=== PATIENT | male | born 1990 | race Caucasian/White ===

== ENCOUNTER 2017-05-30 16:38 | Emergency (ER) | payer BC, MEDICAID ==
[2017-05-30] MEDS ORDERED: ONDANSETRON HCL INJ/PF 4 MG/2 ML SDV IV ONE (16:57)
[2017-05-30] MEDS ORDERED: NORMAL SALINE 1000 ML 1,000 ML IV PRN (16:57)
--- NOTE | 2017-05-30 16:59 | ER Document Report ---
ED Medical Screen (RME) - General Chief Complaint: Urinary Problem Stated Complaint: BLOOD IN URINE,ABNORMAL LABS Time Seen by Provider: 05/30/17 16:54 Mode of Arrival: Ambulatory Information source: Patient TRAVEL OUTSIDE OF THE [place] 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, yesterday while at work he became lightheaded and had nausea and vomiting, he went home from work early, stayed indoors and drink lots of water as well as Gatorade, today he returned to work and was feeling okay in the morning but once his son came out again he started having similar symptoms resulting in a syncopal episode, states he drank at least 7-8 bottles of water today as well as one bottle of Gatorade, he denies any pain or injury, no history of similar symptoms previously, states he feels weak at time of evaluation in triage area - Related Data Allergies/Adverse Reactions: methylprednisolone [Methylprednisolone] Allergy (Mild, Verified 05/30/17 16:42) itching Sulfa (Sulfonamide Antibiotics) Allergy (Mild, Verified 05/30/17 16:42) itching Past Medical History Neurological Medical History: Reports: Hx Migraine Renal/ Medical History: Denies: Hx Peritoneal Dialysis Past Surgical History: Reports: Hx Appendectomy. Denies: Hx Pancreatic Surgery - Immunizations Hx Diphtheria, Pertussis, Tetanus Vaccination: Yes Physical Exam - Vital signs Vitals: Temp Pulse Resp BP Pulse Ox 98.8 F 99 16 143/87 H 97 05/30/17 16:39 05/30/17 16:39 05/30/17 16:39 05/30/17 16:39 05/30/17 16:39 Course - Vital Signs Vital signs: Temp Pulse Resp BP Pulse Ox 98.8 F 99 16 143/87 H 97 05/30/17 16:39 05/30/17 16:39 05/30/17 16:39 05/30/17 16:39 05/30/17 16:39
[2017-05-30 18:40] LABS: ABSOLUTE BASOPHILS # (AUTO) 0.1 10^3/uL (0.0-0.2); ABSOLUTE EOSINOPHILS # (AUTO) 0.1 10^3/uL (0.0-0.6); ABSOLUTE LYMPHOCYTES (AUTO) 4.8 10^3/uL (0.5-4.7); ABSOLUTE MONOCYTES (AUTO) 1.1 10^3/uL (0.1-1.4); ABSOLUTE NEUT (AUTO) 12.1 10^3/uL (1.7-8.2); BASOPHILS % (AUTO) 0.8 % (0-2); EOSINOPHILS % (AUTO) 0.3 % (0-6); HEMATOCRIT 50.5 % (37.9-51.0); HEMOGLOBIN 16.9 g/dL (13.5-17.0); HGB HCT DIFFERENCE 0.2; LYMPHOCYTES % (AUTO) 26.3 % (13-45); MEAN CORPUSCULAR HEMOGLOBIN 26.6 pg (27.0-33.4); MEAN CORPUSCULAR HGB CONC 33.5 g/dL (32.0-36.0); MEAN CORPUSCULAR VOLUME 80 fl (80-97); MONOCYTES % (AUTO) 6.2 % (3-13); RED BLOOD COUNT 6.36 10^6/uL (4.35-5.55); RED CELL DISTRIBUTION WIDTH 13.7 % (11.5-14.0); SEGMENTED NEUTROPHILS % (AUTO) 66.4 % (42-78); WHITE BLOOD COUNT 18.3 10^3/uL (4.0-10.5)
[2017-05-30 18:46] LABS: APPEARANCE,URINE SLIGHTLY-CLOUDY; BILIRUBIN,URINE NEGATIVE (NEGATIVE); GLUCOSE, URINE NEGATIVE (NEGATIVE); KETONES,URINE TRACE mg/dL (NEGATIVE); LEUKOCYTE ESTERASE,URINE NEGATIVE (NEGATIVE); NITRITE,URINE NEGATIVE (NEGATIVE); PROTEIN,URINE NEGATIVE (NEGATIVE); URINE SPECIFIC GRAVITY 1.024; UROBILINOGEN,URINE NEGATIVE mg/dL (<2.0)
[2017-05-30 19:04] LABS: ALANINE AMINOTRANSFERASE 100 U/L (21-72); ALBUMIN 5.7 g/dL (3.5-5.0); ALKALINE PHOSPHATASE 149 U/L (38-126); ANION GAP 19 (5-19); ASPARTATE AMINO TRANSFERASE 33 U/L (17-59); BILIRUBIN,DIRECT 0.6 mg/dL (0.0-0.4); BILIRUBIN,TOTAL 1.4 mg/dL (0.2-1.3); BLOOD UREA NITROGEN 28 mg/dL (7-20); CALCIUM 10.8 mg/dL (8.4-10.2); CARBON DIOXIDE 23 mmol/L (22-30); CHLORIDE 97 mmol/L (98-107); CREATINE KINASE 153 U/L (55-170); CREATININE RESULT 1.11 mg/dL (0.52-1.25); GLUCOSE 82 mg/dL (75-110); POTASSIUM 4.2 mmol/L (3.6-5.0); SODIUM 138.5 mmol/L (137-145); TOTAL PROTEIN 9.1 g/dL (6.3-8.2)
--- NOTE | 2017-05-30 21:23 | ER Document Report ---
ED Syncope and Near Syncope - General Mode of Arrival: Ambulatory Information source: Patient TRAVEL OUTSIDE OF THE [place] IN LAST 30 DAYS: No - HPI Patient complains to provider of: Fainting <DIANE CLEANING - Last Filed: 05/31/17 03:25> <DIPIKA WEISS - Last Filed: 05/31/17 03:25> - General Chief Complaint: Urinary Problem Stated Complaint: BLOOD IN URINE,ABNORMAL LABS Time Seen by Provider: 05/30/17 16:54 Notes: Patient is a 27-year-old male who presents to the emergency department today with complaints of a syncopal episode that occurred today while at work. Patient states he also had a near syncopal episode yesterday while at work. Patient states that he has had intermittent right upper quadrant abdominal pain for a few weeks. Patient states he was shoveling dirt today when his syncopal episode occurred. Patient states he thinks he got overheated. Patient was seen in an urgent care and was told he had "blood and sugar in his urine" and was told to come to the emergency department. Patient states he has vomited once. (DIANE CLEANING) - Related Data Allergies/Adverse Reactions: methylprednisolone [Methylprednisolone] Allergy (Mild, Verified 05/30/17 16:42) itching Sulfa (Sulfonamide Antibiotics) Allergy (Mild, Verified 05/30/17 16:42) itching Past Medical History - General Information source: Patient - Social History Smoking Status: Never Smoker Cigarette use (# per day): No Chew tobacco use (# tins/day): No Frequency of alcohol use: None Drug Abuse: None Lives with: Family Family History: None - Medical History Medical History: Negative Neurological Medical History: Reports: Hx Migraine GI Medical History: Reports: Hx Gastroesophageal Reflux Disease Past Surgical History: Reports: Hx Appendectomy - Immunizations Hx Diphtheria, Pertussis, Tetanus Vaccination: Yes <DIANE CLEANING - Last Filed: 05/31/17 03:25> Review of Systems - Review of Systems Constitutional: No symptoms reported EENT: No symptoms reported Cardiovascular: See HPI, Syncope Respiratory: No symptoms reported Gastrointestinal: See HPI, Abdominal pain, Vomiting Genitourinary: No symptoms reported Male Genitourinary: No symptoms reported Musculoskeletal: No symptoms reported Skin: No symptoms reported Hematologic/Lymphatic: No symptoms reported Neurological/Psychological: No symptoms reported -: Yes All other systems reviewed and negative <DIANE CLEANING - Last Filed: 05/31/17 03:25> Physical Exam <DIANE CLEANING - Last Filed: 05/31/17 03:25> <DIPIKA WEISS - Last Filed: 05/31/17 03:25> - Vital signs Vitals: Temp Pulse Resp BP Pulse Ox 98.8 F 99 16 143/87 H 97 05/30/17 16:39 05/30/17 16:39 05/30/17 16:39 05/30/17 16:39 05/30/17 16:39 - Notes Notes: PHYSICAL EXAM GENERAL: Alert, interacts well. No acute distress. HEAD: Normocephalic, atraumatic. EYES: Pupils equal, round, and reactive to light. Extraocular movements intact. ENT: Oral mucosa moist, tongue midline. NECK: Full range of motion. Supple. Trachea midline. LUNGS: Clear to auscultation bilaterally, no wheezes, rales, or rhonchi. No respiratory distress. HEART: Regular rate and rhythm. No murmurs, gallops, or rubs. ABDOMEN: Soft, right upper quadrant tenderness with palpation, positive Flores' s sign. Non-distended. Bowel sounds present in all 4 quadrants. BACK: Right paraspinal tenderness with percussion, no CVA tenderness with percussion on right or left. EXTREMITIES: Moves all 4 extremities spontaneously. No edema, radial and dorsalis pedis pulses 2/4 bilaterally. No cyanosis. NEUROLOGICAL: Alert and oriented x3. Normal speech. PSYCH: Normal affect, normal mood. SKIN: Warm, dry, normal turgor. No rashes or lesions noted. Sunburn without blistering. (DIANE CLEANING) Course - Laboratory Result Diagrams: 05/30/17 18:08 05/30/17 18:08 <DIANE CLEANING - Last Filed: 05/31/17 03:25> - Laboratory Result Diagrams: 05/30/17 18:08 05/30/17 18:08 <DIPIKA WEISS - Last Filed: 05/31/17 03:25> - Re-evaluation Re-evalutation: 05/31/17 00:15 CBC shows leukocytosis at 18.3, CMP shows slightly elevated bilirubin total bilirubin is 1.4, direct bilirubin 0.6, ALT and alkaline phosphatase both somewhat elevated as well but AST is normal. CK is normal no evidence of rhabdomyolysis at this time, small blood in the urine but 0 RBCs on microscopic. Suspicion for possible acute cholecystitis not confirmed with ultrasound which shows normal gallbladder and fatty liver. This is based off of a pk in the chart from the radiologist rather than full read. Patient is able to tolerate oral liquids and crackers. Patient appears to have biliary colic, discussed the possibility of removal tonight given her protracted symptoms have been versus outpatient removal. Patient prefers outpatient removal, discharged to home with antinausea medications will return for fevers, further syncope or any new or concerning symptoms. 05/31/17 00:16 Patient likely also had history of heat stroke earlier today given his syncope. (DIPIKA WEISS) - Vital Signs Vital signs: Temp Pulse Resp BP Pulse Ox 98.1 F 84 18 137/75 H 99 05/31/17 00:56 05/31/17 00:56 05/31/17 00:56 05/31/17 00:56 05/31/17 00:56 - Laboratory Laboratory results interpreted by me: 05/30/17 05/30/17 05/30/17 17:36 18:08 18:08 WBC 18.3 H RBC 6.36 H MCH 26.6 L Absolute Neutrophils 12.1 H Absolute Lymphocytes 4.8 H Chloride 97 L BUN 28 H Calcium 10.8 H Total Bilirubin 1.4 H Direct Bilirubin 0.6 H ALT 100 H Alkaline Phosphatase 149 H Total Protein 9.1 H Albumin 5.7 H Urine Ketones TRACE H Urine Blood SMALL H Discharge <DIANE CLEANING - Last Filed: 05/31/17 03:25> <DIPIKA WEISS - Last Filed: 05/31/17 03:25> - Discharge Clinical Impression: Biliary colic, Heat syncope, initial encounter Hypertension Qualifiers: Hypertension type: essential hypertension Qualified Code(s): I10 - Essential ( primary) hypertension Condition: Stable Disposition: HOME, SELF-CARE Instructions: Gallbladder Disease ([facility]) Prescriptions: Ondansetron [Zofran Odt 4 mg Tablet] 1 - 2 tab PO Q4H PRN #15 tab.rapdis PRN Reason: For Nausea/Vomiting Promethazine HCl [Phenergan 25 mg Tablet] 1 - 2 tab PO Q6H PRN #15 tablet PRN Reason: Forms: Return to Work Referrals: CHAI ACOSTA MD [ACTIVE STAFF] - Follow up in 1 week KARUNA RAMAN MD [ACTIVE STAFF] - Follow up in 3-5 days Scribe Attestation: 05/31/17 03:25 I personally performed the services described in the documentation, reviewed and edited the documentation which was dictated to the scribe in my presence, and it accurately records my words and actions. (DIPIKA WEISS) Scribe Documentation - Scribe Written by Aidee:: Aidee Clarke, 05/31/2017 0010 acting as scribe for :: Malena <DIANE CLEANING - Last Filed: 05/31/17 03:25>
[2017-05-30] MEDS ORDERED: NORMAL SALINE 1000 ML 1,000 ML IV ONE (21:25)
[2017-05-31] MEDS ORDERED: ONDANSETRON HCL INJ/PF 4 MG/2 ML SDV IV ONE (00:10)
[2017-05-31] MEDS ORDERED: ONDANSETRON ODT 4 MG TAB (6 TAB/DSPK) PO PRN (00:18)
[2017-05-31 00:59] VITALS: BP 137/75
--- NOTE | 2017-06-01 16:22 | RADIOLOGY REPORT (SQ) ---
EXAM DESCRIPTION: U/S ABDOMEN LIMITED W/O DOP COMPLETED DATE/TIME: 05/30/2017 8:44 pm REASON FOR STUDY: pain COMPARISON: None. TECHNIQUE: Dynamic and static grayscale images acquired of the right upper quadrant and recorded on PACS. Additional selected color Doppler and spectral images recorded. LIMITATIONS: Study limited due to acoustical interference from fat or from air in the bowel. FINDINGS: PANCREAS: Parts or all of the pancreas poorly seen secondary to acoustical interference fr om fat or from air in the bowel. LIVER: Echotexture is coarse with increased echogenicity consistent with fatty infiltration. No mass es. LIVER VASCULATURE: Normal directional flow of the main portal vein and hepatic veins. GALLBLADDER: No stones. Normal wall thickness. No pericholecystic fluid. ULTRASOUND-DETECTED ANDERSON'S SIGN: Negative. INTRAHEPATIC DUCTS AND COMMON DUCT: CBD and intrahepatic ducts normal caliber. No filling defects. INFERIOR VENA CAVA: Normal flow. AORTA: No aneurysm. RIGHT KIDNEY: Normal size. Normal echogenicity. No solid or suspicious masses. No hydronephrosis. No calcifications. PERITONEAL CAVITY AND RIGHT PLEURAL SPACE: No ascites or effusions. OTHER: No other significant finding. IMPRESSION: FATTY LIVER. PANCREAS PARTIALLY OR COMPLETELY OBSCURED. Normal appearance of the gallbl adder. TECHNICAL DOCUMENTATION: JOB ID: [id number] [employer]- All Rights Reserved
== END 2017-05-31 00:56 | disposition home or self-care (01) ==
LOC: ER 16:38
DX: K80.50 Calculus of bile duct without cholangitis or cholecystitis without obstruction (principal); R55 Syncope and collapse; I10 Essential (primary) hypertension
CPT/HCPCS: 96376; 99284; 96361; 96374; 36415; 82553; 82550; 85025; 80053; 81001; 76705; J2405 ×2; J7030

== ENCOUNTER 2017-06-02 20:18 | Emergency (ER) | payer BC ==
[2017-06-02 20:55] LABS: APPEARANCE,URINE CLEAR; BILIRUBIN,URINE NEGATIVE (NEGATIVE); GLUCOSE, URINE NEGATIVE (NEGATIVE); KETONES,URINE NEGATIVE (NEGATIVE); LEUKOCYTE ESTERASE,URINE NEGATIVE (NEGATIVE); NITRITE,URINE NEGATIVE (NEGATIVE); PROTEIN,URINE NEGATIVE (NEGATIVE); URINE SPECIFIC GRAVITY 1.019; UROBILINOGEN,URINE NEGATIVE mg/dL (<2.0)
[2017-06-02 21:03] LABS: ABSOLUTE BASOPHILS # (AUTO) 0.2 10^3/uL (0.0-0.2); ABSOLUTE EOSINOPHILS # (AUTO) 0.2 10^3/uL (0.0-0.6); ABSOLUTE LYMPHOCYTES (AUTO) 5.7 10^3/uL (0.5-4.7); ABSOLUTE MONOCYTES (AUTO) 0.9 10^3/uL (0.1-1.4); ABSOLUTE NEUT (AUTO) 8.8 10^3/uL (1.7-8.2); BASOPHILS % (AUTO) 1.2 % (0-2); EOSINOPHILS % (AUTO) 1.2 % (0-6); HEMATOCRIT 43.4 % (37.9-51.0); HGB HCT DIFFERENCE 1.6; MEAN CORPUSCULAR HEMOGLOBIN 27.4 pg (27.0-33.4); MEAN CORPUSCULAR HGB CONC 34.5 g/dL (32.0-36.0); MEAN CORPUSCULAR VOLUME 80 fl (80-97); MONOCYTES % (AUTO) 5.8 % (3-13); RED BLOOD COUNT 5.46 10^6/uL (4.35-5.55); RED CELL DISTRIBUTION WIDTH 13.8 % (11.5-14.0); SEGMENTED NEUTROPHILS % (AUTO) 55.8 % (42-78); WHITE BLOOD COUNT 15.7 10^3/uL (4.0-10.5)
[2017-06-02] MEDS ORDERED: NORMAL SALINE 1000 ML 1,000 ML IV ONE (21:08)
[2017-06-02] MEDS ORDERED: ONDANSETRON HCL INJ/PF 4 MG/2 ML SDV IV ONE (21:08)
[2017-06-02] MEDS ORDERED: KETOROLAC TROMETHAMINE INJ/PF 30 MG/1 ML SDV IV ONE (21:09)
[2017-06-02 21:37] LABS: ALANINE AMINOTRANSFERASE 91 U/L (21-72); ALBUMIN 4.6 g/dL (3.5-5.0); ALKALINE PHOSPHATASE 133 U/L (38-126); ANION GAP 11 (5-19); ASPARTATE AMINO TRANSFERASE 68 U/L (17-59); BILIRUBIN,DIRECT 0.5 mg/dL (0.0-0.4); BILIRUBIN,TOTAL 0.6 mg/dL (0.2-1.3); BLOOD UREA NITROGEN 12 mg/dL (7-20); CALCIUM 9.7 mg/dL (8.4-10.2); CARBON DIOXIDE 25 mmol/L (22-30); CHLORIDE 107 mmol/L (98-107); CREATININE RESULT 0.79 mg/dL (0.52-1.25); GLUCOSE 95 mg/dL (75-110); LIPASE 73.2 U/L (23-300); POTASSIUM 3.6 mmol/L (3.6-5.0); SODIUM 143.2 mmol/L (137-145); TOTAL PROTEIN 7.6 g/dL (6.3-8.2)
[2017-06-02] MEDS ORDERED: MORPHINE SULFATE 10 MG/ML INJ IV PRN (22:05)
--- NOTE | 2017-06-02 22:12 | ER Document Report ---
ED General - General Chief Complaint: Abdominal Pain Stated Complaint: ABDOMINAL PAIN Time Seen by Provider: 06/02/17 21:05 Notes: Patient is a 27-year-old male without past medical history who presents with 3 weeks of progressively worsening right upper quadrant abdominal pain. Does describe it as a constant, stabbing, severe pain. It is worsened by eating. Nothing improves the pain. He was seen in the emergency room 3 days ago for the same complaint and at that time diagnosed with biliary colic. He is scheduled to follow-up in the outpatient surgical clinic on Sunday but states the pain became so severe today he returned to the emergency department. He has had associated vomiting and diarrhea. He denies prior history of similar symptoms previously the past 3 weeks. Denies any chest pain or shortness of breath. TRAVEL OUTSIDE OF THE [place] IN LAST 30 DAYS: No - Related Data Allergies/Adverse Reactions: methylprednisolone [Methylprednisolone] Allergy (Mild, Verified 06/02/17 20:34) itching Sulfa (Sulfonamide Antibiotics) Allergy (Mild, Verified 06/02/17 20:34) itching Past Medical History - General Information source: Patient - Social History Smoking Status: Never Smoker Frequency of alcohol use: None Drug Abuse: None Lives with: Family Family History: Reviewed & Not Pertinent Neurological Medical History: Reports: Hx Migraine Renal/ Medical History: Denies: Hx Peritoneal Dialysis GI Medical History: Reports: Hx Gastroesophageal Reflux Disease Past Surgical History: Reports: Hx Appendectomy. Denies: Hx Pancreatic Surgery - Immunizations Hx Diphtheria, Pertussis, Tetanus Vaccination: Yes Review of Systems - Review of Systems Notes: Constitutional: Negative for fever. HENT: Negative for sore throat. Eyes: Negative for visual changes. Cardiovascular: Negative for chest pain. Respiratory: Negative for shortness of breath. Gastrointestinal: Positive for abdominal pain, vomiting and diarrhea Genitourinary: Negative for dysuria. Musculoskeletal: Negative for back pain. Skin: Negative for rash. Neurological: Negative for headaches, weakness or numbness. 10 point ROS negative except as marked above and in HPI. Physical Exam - Vital signs Vitals: Temp Pulse Resp BP Pulse Ox 98.9 F 106 H 16 139/78 H 97 06/02/17 20:34 06/02/17 20:34 06/02/17 20:34 06/02/17 20:34 06/02/17 20:34 Interpretation: Tachycardic Notes: PHYSICAL EXAMINATION: GENERAL: Appears moderately uncomfortable but in no acute distress HEAD: Atraumatic, normocephalic. EYES: Pupils equal round and reactive to light, extraocular movements intact, sclera anicteric, conjunctiva are normal. ENT: nares patent, oropharynx clear without exudates. Moist mucous membranes. NECK: Normal range of motion, supple without lymphadenopathy LUNGS: Breath sounds clear to auscultation bilaterally and equal. No wheezes rales or rhonchi. HEART: Regular rate and rhythm without murmurs ABDOMEN: Soft, right upper quadrant abdominal tenderness without a Flores sign otherwise no focal tenderness, normoactive bowel sounds. No guarding, no rebound. No masses appreciated. EXTREMITIES: Normal range of motion, no pitting or edema. No cyanosis. NEUROLOGICAL: No focal neurological deficits. Moves all extremities spontaneously and on command. PSYCH: Normal mood, normal affect. SKIN: Warm, Dry, normal turgor, no rashes or lesions noted. Course - Re-evaluation Re-evalutation: 06/02/17 22:11 Patient presents with 3 weeks of progressively worsening right upper quadrant abdominal pain now a constant pain. He has repeated episodes of associated vomiting and diarrhea. Pain is worsened by eating. Right upper quadrant ultrasound obtained 3 days ago was normal without any evidence of acute cholecystitis or gallstones. It is possible the patient has a nonfunctioning gallbladder which could be identified on a HIDA scan and is not visualized on ultrasound which could explain his ongoing symptoms although his presentation remains inconsistent with an acute cholecystitis. Alternative diagnostic considerations include regional colitis of the ascending colon, possible liver mass, less likely a regional ileus. Will obtain a CT abdomen pelvis to further clarify these alternative etiologies and if this is unremarkable will discuss with a surgeon ironer sock for consideration of inpatient admission for HIDA scan and surgical management versus outpatient management. 06/02/17 23:34 CT scan unremarkable. Patient's symptoms are improved after receiving pain medication here in the emergency department. I discussed this case with the surgeon ironer sock who did not feel based on history, labs, and imaging studies that patient has a surgical process. Reassessment of the abdomen does not show any ongoing tenderness other than mild right upper quadrant tenderness. Patient's clinical history is not consistent with an acute PE or lung base pathology based on his report of worsening pain with eating, reproducible exam on palpation of the right lower abdomen, no pleuritic pain, tachycardia at time of assessment although initially was mildly tachycardic at time of arrival, and no history of thromboembolic disease. Patient is scheduled to follow-up with surgery as an outpatient this upcoming Sunday which I believe is appropriate. At this time will discharge with return precautions and follow-up recommendations. Verbal discharge instructions given a the bedside and opportunity for questions given. Medication warnings reviewed. Patient is in agreement with this plan and has verbalized understanding of return precautions and the need for primary care follow-up in the next 24-72 hours. - Vital Signs Vital signs: Temp Pulse Resp BP Pulse Ox 98.2 F 106 H 18 123/76 96 06/03/17 00:00 06/02/17 20:34 06/03/17 00:01 06/03/17 00:01 06/03/17 00:01 - Laboratory Result Diagrams: 06/02/17 20:45 06/02/17 20:45 Laboratory results interpreted by me: 06/02/17 06/02/17 20:45 20:45 WBC 15.7 H Absolute Neutrophils 8.8 H Absolute Lymphocytes 5.7 H Direct Bilirubin 0.5 H AST 68 H ALT 91 H Alkaline Phosphatase 133 H - Diagnostic Test Radiology reviewed: Reports reviewed Discharge - Discharge Clinical Impression: Biliary colic, Right upper quadrant pain Condition: Good Disposition: HOME, SELF-CARE Additional Instructions: Please follow-up with surgery as scheduled. Your evaluation did not identify a clear cause of your symptoms but was generally reassuring. I suspect that you have a poorly functioning gallbladder as the etiology of your complaint today. For your pain: Take ibuprofen 600 mg and acetaminophen 1000 mg every 6 hours together as needed for pain. If this does not control your pain you may take 15 mg of oral morphine every 4 hours as needed. Please be very careful about using the oral morphine and only use this for severe pain. Return to the ED if your abdominal pain worsens or fails to improve, you develop bloody vomiting, bloody diarrhea, you are unable to tolerate fluids due to vomiting, fever greater than 101, or other symptoms that concern you. Prescriptions: Morphine Sulfate [Morphine Ir 15 mg Tablet] 15 mg PO Q4HP PRN #12 tablet PRN Reason:
--- NOTE | 2017-06-02 23:15 | RADIOLOGY REPORT (SQ) ---
EXAM DESCRIPTION: CT ABD/PELVIS WITH IV ONLY COMPLETED DATE/TIME: 06/02/2017 10:44 pm REASON FOR STUDY: eval persistent ruq pain, vomiting, diarrhea COMPARISON: Abdominal ultrasound 05/30/2017 TECHNIQUE: CT scan of the abdomen and pelvis performed using helical scanning technique with dynamic intravenous contrast injection. No oral contrast. Images reviewed with lung, soft tissue, and bone windows. Reconstructed coronal and sagittal MPR images reviewed. Delayed images for evaluation of the urinary system also acquired. All images stored on PACS. All CT scanners at this facility use dose modulation, iterative reconstruction, and/or weight based d osing when appropriate to reduce radiation dose to as low as reasonably achievable (ALARA). [facility]: Dose Right [facility]: CareDose [facility]: Dose Right [facility]: Teradose 4D [facility]: Wizer CONTRAST TYPE AND DOSE: contrast/concentration: Isovue 370.00 mg/ml; Total Contrast Delivered: 99.0 ml; Total Saline Delivered: 72.0 ml RENAL FUNCTION: Creatinine 0.79 RADIATION DOSE: Up-to-date CT equipment and radiation dose reduction techniques were employed. CTDIv ol: 10.8 - 15.2 mGy. DLP: 1471 mGy-cm.. LIMITATIONS: None. FINDINGS: LOWER CHEST: No significant findings. No nodules or infiltrates. LIVER: Normal size. No masses. No dilated ducts. Low attenuation from fatty infiltration. SPLEEN: Normal size. No focal lesions. PANCREAS: No masses. No significant calcifications. No adjacent inflammation or peripancreatic fluid collections. Pancreatic duct not dilated. GALLBLADDER: No identified stones by CT criteria. No inflammatory changes to suggest cholecystitis. ADRENAL GLANDS: No significant masses or asymmetry. RIGHT KIDNEY AND URETER: No solid masses. No significant calcifications. No hydronephrosis or hyd roureter. LEFT KIDNEY AND URETER: No solid masses. No significant calcifications. No hydronephrosis or hydr oureter. AORTA AND VESSELS: No aneurysm. No dissection. Renal arteries, SMA, celiac without stenosis. RETROPERITONEUM: No retroperitoneal adenopathy, hemorrhage or masses. BOWEL AND PERITONEAL CAVITY: No masses or inflammatory changes. No free fluid or peritoneal masses. APPENDIX: Surgically absent PELVIS: No mass. No free fluid. Normal bladder. ABDOMINAL WALL: No masses. No hernias. BONES: No significant or acute findings. OTHER: No other significant finding. IMPRESSION: Fatty liver. Post appendectomy. Otherwise unremarkable. TECHNICAL DOCUMENTATION: JOB ID: [id number] Quality ID # [id number]: Final reports with documentation of one or more dose reduction techniques (e.g., Au tomated exposure control, adjustment of the mA and/or kV according to patient size, use of iterative reconstruction technique) 2010 [employer]- All Rights Reserved
[2017-06-03 00:19] VITALS: BP 123/76
== END 2017-06-03 00:05 | disposition home or self-care (01) ==
LOC: ER 20:18
DX: R10.11 Right upper quadrant pain (principal); K80.50 Calculus of bile duct without cholangitis or cholecystitis without obstruction
CPT/HCPCS: 99284; 36415; 83690; 85025; 80053; 81001; 74177; J1885; J2270; J2405; J7030

== ENCOUNTER 2017-06-27 10:05 | Day surgery (SDC) | payer BC ==
[2017-06-20 11:27] LABS: HEMATOCRIT 46.6 % (37.9-51.0); HEMOGLOBIN 15.4 g/dL (13.5-17.0); HGB HCT DIFFERENCE -0.4; MEAN CORPUSCULAR HEMOGLOBIN 26.7 pg (27.0-33.4); MEAN CORPUSCULAR VOLUME 81 fl (80-97); RED BLOOD COUNT 5.76 10^6/uL (4.35-5.55); WHITE BLOOD COUNT 9.4 10^3/uL (4.0-10.5)
[2017-06-20 11:45] LABS: ALANINE AMINOTRANSFERASE 89 U/L (21-72); ALBUMIN 4.7 g/dL (3.5-5.0); ALKALINE PHOSPHATASE 128 U/L (38-126); AMYLASE 51 U/L (30-110); ANION GAP 12 (5-19); ASPARTATE AMINO TRANSFERASE 29 U/L (17-59); BILIRUBIN,DIRECT 0.4 mg/dL (0.0-0.4); BILIRUBIN,TOTAL 1.2 mg/dL (0.2-1.3); BLOOD UREA NITROGEN 12 mg/dL (7-20); CALCIUM 10.3 mg/dL (8.4-10.2); CARBON DIOXIDE 26 mmol/L (22-30); CHLORIDE 105 mmol/L (98-107); CREATININE RESULT 0.69 mg/dL (0.52-1.25); GLUCOSE 90 mg/dL (75-110); POTASSIUM 4.6 mmol/L (3.6-5.0); SODIUM 143.4 mmol/L (137-145); TOTAL PROTEIN 7.3 g/dL (6.3-8.2)
[~2017-06-27 10:05] MED LIST: ACETAMINOPHEN 325 MG TABLET PO PRN; BUPIVACAINE HCL 0.25 % INJ/PF (2.5 MG/1 ML) 30 ML VIAL ONE; CEFAZOLIN 1 GM/D5W RTU 1 GM/50 ML RTUPB IV PRN; LACTATED RINGERS 1000 ML IV PRN; LIDOCAINE 0.5% INJ-PF (5 MG/ML) 50 ML SDV SUBCUT PRN
[2017-06-27] MEDS ORDERED: MIDAZOLAM 2 MG/2 ML INJ ONE (10:27)
[2017-06-27] MEDS ORDERED: FENTANYL CITRATE INJ/PF 250 MCG/5 ML AMPULE ONE (10:27)
[2017-06-27] MEDS ORDERED: EPHEDRINE SULFATE INJ 50 MG/1 ML AMPULE ONE (10:28)
[2017-06-27] MEDS ORDERED: ACETAMINOPHEN 100 ML IV ONE (10:28)
[2017-06-27] MEDS ORDERED: PROPOFOL INJ 200 MG/20 ML VIAL IV ONE (10:28)
[2017-06-27] MEDS ORDERED: HYDROMORPHONE HCL INJ/PF 2 MG/ML AMPULE ONE (10:29)
[2017-06-27] MEDS ORDERED: FENTANYL CITRATE INJ/PF 100 MCG/2 ML AMPUL IV PRN ×3 (11:21)
[2017-06-27] MEDS ORDERED: OXYCODONE-ACETAMINOPHEN 5-325 MG TABLET PO PRN ×3 (11:21→11:43)
[2017-06-27] MEDS ORDERED: PROMETHAZINE HCL INJ 25 MG/1 ML VIAL IV PRN ×2 (11:21)
[2017-06-27] MEDS ORDERED: MEPERIDINE HCL/PF INJ 25 MG/1 ML DISP.SYRIN IV PRN (11:21)
[2017-06-27] MEDS ORDERED: DIPHENHYDRAMINE HCL 50 MG/ML VIAL IV PRN (11:21)
[2017-06-27] MEDS ORDERED: MORPHINE SULFATE 10 MG/ML INJ IV PRN (11:21)
--- NOTE | 2017-06-27 11:34 | Operative Report ---
Operative Report DATE OF SURGERY: 06/27/17 PREOPERATIVE DIAGNOSIS: Biliary dyskinesia POSTOPERATIVE DIAGNOSIS: Same OPERATION: Laparoscopic cholecystectomy SURGEON: CAHI ACOSTA 1ST SURGICAL SCRUB TECH: BRENNA GILL ANESTHESIA: GA TISSUE REMOVED OR ALTERED: 1 gallbladder COMPLICATIONS: None ESTIMATED BLOOD LOSS: Scant INTRAOPERATIVE FINDINGS: See below PROCEDURE: The patient was taken to the operating room where general anesthesia was induced. Arms were abducted abdomen exposed, prepped and draped sterile fashion. Surgical plan and surgical timeout were conducted. Skin was any status of quarter percent Marcaine above the umbilicus below the xiphoid in the subcostal regions. Supraumbilical was made vertically oriented and a Veress needle inserted the peritoneal cavity. Pneumoperitoneum was established, Veress needle was removed, 5 mm ports inserted a 5 mm viewing scope was inserted. Under direct visualization, 3 additional ports were placed one in the subxiphoid to in subcostal positions. Findings are significant for moderately distended gallbladder. It was grasped at the fundus and infundibulum and reflected up over the liver bed. The neck of the gallbladder was dissected out nicely. Cystic artery and cystic duct were in usual location. All the fatty tissue was removed from around these 2 structures photographs taken, cystic artery was clipped twice proximally once distally divided with scissors. We now the triangle of Calot open widely. Photos taken. We now clipped the cystic duct twice proximally once distally divided with scissors. The gallbladder was removed from the liver bed using hook cautery dissection. It was brought out of the patient through the supraumbilical port site incision. The specimen sent to pathology Return the perineal cavity check bleeding there was none. Sponge and counts correct. All ports removed under direct visualization pneumoperitoneum evacuated wounds closed with 3-0 Vicryl benzoin and Steri-Strips. Patient was extubated and taken to recovery room in stable condition. The physician certified nursing assistant instructor, Ms. Barry, provided assistance during this case by: Assisting and port insertion, retracting tissue, instillation of local anesthesia and closure of skin incisions.
[2017-06-27] MEDS ORDERED: ONDANSETRON HCL INJ/PF 4 MG/2 ML SDV IV PRN (11:43)
--- NOTE | 2017-06-27 11:43 | PDOC DISCHARGE SUMMARY ---
Discharge Summary (SDC) - Discharge Final Diagnosis: biliary dyskinesia Date of Surgery: 06/27/17 Discharge Date: 06/27/17 Condition: Stable Treatment or Instructions: [facility] [address], [place] [address] Discharge Instructions: Laparoscopic Surgery 1. General Information: a. DO NOT DRIVE a car or operate dangerous machinery for 3-4 days or while taking narcotic pain pills. b. DO NOT consume alcohol, tranquilizers, sleeping medications or any non- prescribed medications for 24 hours unless approved by your doctor or as long as taking narcotic prescription medications. c. DO NOT make important decisions or sign any important papers for the first 24 hours after surgery. d. When discharged home the same day of surgery have a responsible person with you for the first night. 2. Activity Restrictions: 2 weeks a. NO heavy lifting, straining abdominal muscles, bending over a lot, yard work, house work, or sports for [address] NOT [address] for 3-4 days or while taking pain medication. c. It is fine to go for walks, up and down steps, ride in a car. d. Elevate your head when sleeping/resting. 3. Treatment: a. You may shower 24 hours after surgery, no baths or swimming for 2 weeks. Remove band-aids or dressings before shower but leave paper strips (steri-strips ) on the skin to fall off on their own. If still on at postoperative visit they will be removed then. b. Drainage of fluid or blood is not unusual from an incision. If occurs, you can clean with peroxide and cotton ball daily and cover with dry gauze until the wound seals. c. If a lot of bleeding occurs, you can hold pressure with a gauze or cloth over the site for 10 minutes and it will usually stop. If bleeding continues you will need to call for possible evaluation in office or emergency room. 4. Medications: a. ___Toradol_ may be taken for pain as needed, one or two tablets every 4-6 hours. Stop the narcotic when able since you cannot take it and drive, and they cause constipation. You may switch to plain Tylenol, Advil or Aleve as you transition from the narcotic. Many adults find good pain relief with Advil 600- 800 mg three times a day with meals. This can cause indigestion, ulcers, and kidney problems with long-term use. b. You should resume all normal medications unless a change is specified by your doctors. c. Antibiotic(s) if needed ( NONE) 5. Diet: Begin with clear liquids and may progress to your normal diet if not nauseated. No high fat, high protein foods the day of surgery. 6. The following may occur after laparoscopic surgery: a. Shoulder or upper back ache from retained gas that should resolve in 1-2 days b. Soreness and bruising at incision sites will resolve with time. c. Scrotal swelling (labia in women) and bruising is often seen after hernia surgery. d. Sore throat e. Fatigue may last days to weeks. f. Difficulty urinating may occur and may need to come into emergency room for urinary catheter placement. 7. Notify Physician If: a. Worsening or pain not improved with pain medication b. Persistent nausea and vomiting c. Fever above 101 d. Persistent bleeding or swelling at operative site e. Unable to urinate and uncomfortable bladder 6-8 hours after surgery 8..Follow Up Care: a. Schedule a follow up appointment with your doctor for 2 weeks. In the event of any postoperative problems or questions or you may call the office during business hours or the On-Call physician evenings and weekends at [facility]. [facility] I understand the instructions for my postoperative care as described above and a copy has been given to me. Patient/Significant Other Witness Date Prescriptions: Ketorolac Tromethamine [Toradol 10 mg Tablet] 10 mg PO Q6HP PRN #25 tablet PRN Reason: Discharge Diet: Other (Comments) - Small bland portions. Avoid fatty/greasy foods. Discharge Activity: No Lifting Over 10 Pounds - for two weeks Report the Following to Your Physician Immediately: Nausea, Vomiting, Fever over 101 Degrees, Drainage-Foul Smelling
[2017-06-27] MEDS ORDERED: DEXAMETHASONE SOD PHOS INJ 10 MG/1 ML VIAL ONE (11:47)
[2017-06-27] MEDS ORDERED: PROMETHAZINE HCL INJ 25 MG/1 ML VIAL ONE (11:47)
[2017-06-27] MEDS: FENTANYL CITRATE INJ/PF 100 MCG/2 ML AMPUL ONE ×2 (11:53→12:07)
[2017-06-27 14:10] VITALS: BP 124/83
[2017-06-27] MEDS ORDERED: ROCURONIUM BROMIDE INJ 50 MG/5 ML VIAL IV ONE (15:26)
[2017-06-27] MEDS ORDERED: NEOSTIGMINE METHYLSULFATE 10 MG/10 ML VIAL ONE (15:26)
[2017-06-27] MEDS ORDERED: ONDANSETRON HCL INJ/PF 4 MG/2 ML SDV ONE (15:26)
[2017-06-27] MEDS ORDERED: SUCCINYLCHOLINE CHLORIDE INJ 200 MG/10 ML VIAL ONE (15:26)
[2017-06-27] MEDS ORDERED: GLYCOPYRROLATE INJ 0.4 MG/2 ML VIAL ONE (15:26)
== END 2017-06-27 13:55 | disposition home or self-care (01) ==
LOC: OROUT 10:05
PROVIDERS: ATTEND Surgery
PROC: 0FT44ZZ Resection of Gallbladder, Percutaneous Endoscopic Approach (ICD-10-PCS; principal; 2017-06-27 12:15)
DX: K81.1 Chronic cholecystitis (principal); Z88.2 Allergy status to sulfonamides; Z88.5 Allergy status to narcotic agent; Z87.891 Personal history of nicotine dependence
CPT/HCPCS: 36415; 82150; 85027; 80076; 80048; 88304 ×2; 47562; J2250; J0690; J3490; J3010 ×2; J1170; J2550; J0330; J2405; J2704; J1100; J0131; 790

== ENCOUNTER → 2017-07-05 | Outpatient (CLI) | payer BC ==
[2017-07-05 10:46] LABS: ABSOLUTE BASOPHILS # (AUTO) 0.1 10^3/uL (0.0-0.2); ABSOLUTE EOSINOPHILS # (AUTO) 0.1 10^3/uL (0.0-0.6); ABSOLUTE LYMPHOCYTES (AUTO) 2.6 10^3/uL (0.5-4.7); ABSOLUTE MONOCYTES (AUTO) 0.8 10^3/uL (0.1-1.4); ABSOLUTE NEUT (AUTO) 10.8 10^3/uL (1.7-8.2); BASOPHILS % (AUTO) 0.6 % (0-2); EOSINOPHILS % (AUTO) 0.9 % (0-6); HEMATOCRIT 46.1 % (37.9-51.0); HEMOGLOBIN 15.8 g/dL (13.5-17.0); HGB HCT DIFFERENCE 1.3; LYMPHOCYTES % (AUTO) 18.3 % (13-45); MEAN CORPUSCULAR HEMOGLOBIN 27.3 pg (27.0-33.4); MEAN CORPUSCULAR HGB CONC 34.2 g/dL (32.0-36.0); MEAN CORPUSCULAR VOLUME 80 fl (80-97); MONOCYTES % (AUTO) 5.7 % (3-13); RED BLOOD COUNT 5.78 10^6/uL (4.35-5.55); RED CELL DISTRIBUTION WIDTH 14.1 % (11.5-14.0); SEGMENTED NEUTROPHILS % (AUTO) 74.5 % (42-78); WHITE BLOOD COUNT 14.5 10^3/uL (4.0-10.5)
== END ==
LOC: OD 09:56
PROVIDERS: ATTEND Physician Assistant Surgical
DX: R50.9 Fever, unspecified (principal); Z90.49 Acquired absence of other specified parts of digestive tract
CPT/HCPCS: 36415; 85025

== ENCOUNTER 2017-07-13 10:35 | Emergency (ER) | payer BC ==
[2017-07-13 10:57] VITALS: BP 139/83
--- NOTE | 2017-07-13 12:01 | ER Document Report ---
ED ENT - General Chief Complaint: Sore Throat Stated Complaint: SORE THROAT Time Seen by Provider: 07/13/17 11:15 Mode of Arrival: Ambulatory Information source: Patient Notes: Patient is a 27-year-old male who presents to the ER today for possible strep throat. Patient has had a sore throat for 3 days with a mild cough. He admits to fever as high as 101.3 at home. His 2-year-old daughter was recently diagnosed with strep throat with positive throat culture. TRAVEL OUTSIDE OF THE [place] IN LAST 30 DAYS: No - Related Data Allergies/Adverse Reactions: methylprednisolone [Methylprednisolone] Allergy (Mild, Verified 06/02/17 20:34) itching Sulfa (Sulfonamide Antibiotics) Allergy (Mild, Verified 06/02/17 20:34) itching Past Medical History - General Information source: Patient - Social History Smoking Status: Never Smoker Family History: Reviewed & Not Pertinent - Past Medical History Cardiac Medical History: Denies: Hx Coronary Artery Disease, Hx Heart Attack, Hx Hypertension Pulmonary Medical History: Denies: Hx Asthma, Hx Bronchitis, Hx COPD, Hx Pneumonia Neurological Medical History: Reports: Hx Migraine. Denies: Hx Cerebrovascular Accident, Hx Seizures Renal/ Medical History: Denies: Hx Peritoneal Dialysis GI Medical History: Reports: Hx Gastroesophageal Reflux Disease Musculoskeltal Medical History: Denies Hx Arthritis Past Surgical History: Reports: Hx Appendectomy. Denies: Hx Pancreatic Surgery - Immunizations Hx Diphtheria, Pertussis, Tetanus Vaccination: Yes Review of Systems - Review of Systems Constitutional: See HPI EENT: See HPI Cardiovascular: No symptoms reported Respiratory: No symptoms reported Gastrointestinal: No symptoms reported Genitourinary: No symptoms reported Male Genitourinary: No symptoms reported Musculoskeletal: No symptoms reported Skin: No symptoms reported Hematologic/Lymphatic: No symptoms reported Neurological/Psychological: No symptoms reported Physical Exam - Vital signs Vitals: Temp Pulse Resp BP Pulse Ox 98.7 F 88 18 139/83 H 98 07/13/17 10:55 07/13/17 10:55 07/13/17 10:55 07/13/17 10:55 07/13/17 10:55 - Notes Notes: PHYSICAL EXAMINATION: GENERAL: Mildly ill-appearing, but in no acute distress. HEAD: Atraumatic, normocephalic. EYES: Pupils equal round and reactive to light, extraocular movements intact, sclera anicteric, conjunctiva are normal. ENT: ear canals without erythema or foreign body, TMs pearly caballero with good bony landmarks, nares patent, oropharynx erythematous with enlarged tonsils bilaterally with exudates. Moist mucous membranes. NECK: Normal range of motion, supple without lymphadenopathy LUNGS: Cough, otherwise CTAB and equal. No wheezes rales or rhonchi. HEART: Regular rate and rhythm without murmurs EXTREMITIES: Normal range of motion, no pitting edema. No cyanosis. NEUROLOGICAL: Cranial nerves grossly intact. Normal sensory/motor exams. PSYCH: Normal mood, normal affect. SKIN: Warm, Dry, normal turgor, no rashes or lesions noted Course - Re-evaluation Re-evalutation: 07/13/17 11:59 Strep negative today, however I will treat as he has had a recent exposure and clinically meets criteria to treat for strep throat. - Vital Signs Vital signs: Temp Pulse Resp BP Pulse Ox 98.7 F 88 18 139/83 H 98 07/13/17 10:55 07/13/17 10:55 07/13/17 10:55 07/13/17 10:55 07/13/17 10:55 Discharge - Discharge Clinical Impression: Strep pharyngitis Condition: Stable Disposition: HOME, SELF-CARE Instructions: Strep Throat ([facility]), Penicillin V K ([facility]) Additional Instructions: Return immediately for any new or worsening symptoms. Follow up with primary care provider, call tomorrow to make followup appointment. Prescriptions: Nystatin/Dexameth/Diphen [Magic Mouthwash ([facility] Formula) Susp] 5 ml PO QID #120 ml Penicillin V Potassium [Penicillin Vk 500 mg Tablet] 500 mg PO BID #20 tablet Forms: Return to Work
== END 2017-07-13 12:10 | disposition home or self-care (01) ==
LOC: ER 10:35
DX: J02.0 Streptococcal pharyngitis (principal); R50.9 Fever, unspecified; Z88.2 Allergy status to sulfonamides
CPT/HCPCS: 87070; 87880; 99283

== ENCOUNTER 2018-02-26 11:43 | Emergency (ER) | payer BC, OTHER ==
[2018-02-26 11:49] VITALS: BP 135/79
[2018-02-26] MEDS ORDERED: ONDANSETRON 4 MG TAB.RAPDIS PO ONE (11:57)
--- NOTE | 2018-02-26 12:03 | ER Document Report ---
ED General - General Chief Complaint: Nausea/Vomiting/Diarrhea Stated Complaint: VOMITING, DIARRHEA, HEADACHE Time Seen by Provider: 02/26/18 11:53 Notes: 27-year-old male here with complaints of congestion runny nose cough nausea vomiting diarrhea abdominal pain body aches ongoing for the past 2 days. He has tried cold and flu medication with minimal relief. He has tried over-the- counter vomiting medicine with minimal relief. His kids are sick with a stomach bug but not upper respiratory symptoms. Immunizations up-to-date. TRAVEL OUTSIDE OF THE [place] IN LAST 30 DAYS: No - Related Data Allergies/Adverse Reactions: methylprednisolone [Methylprednisolone] Allergy (Mild, Verified 06/02/17 20:34) itching Sulfa (Sulfonamide Antibiotics) Allergy (Mild, Verified 06/02/17 20:34) itching Past Medical History - Social History Smoking Status: Current Every Day Smoker Chew tobacco use (# tins/day): No Frequency of alcohol use: Occasional Drug Abuse: None Family History: Reviewed & Not Pertinent Patient has suicidal ideation: No Patient has homicidal ideation: No - Past Medical History Cardiac Medical History: Denies: Hx Coronary Artery Disease, Hx Heart Attack, Hx Hypertension Pulmonary Medical History: Denies: Hx Asthma, Hx Bronchitis, Hx COPD, Hx Pneumonia Neurological Medical History: Reports: Hx Migraine. Denies: Hx Cerebrovascular Accident, Hx Seizures Renal/ Medical History: Denies: Hx Peritoneal Dialysis GI Medical History: Reports: Hx Gastroesophageal Reflux Disease Musculoskeltal Medical History: Denies Hx Arthritis Past Surgical History: Reports: Hx Appendectomy. Denies: Hx Pancreatic Surgery - Immunizations Hx Diphtheria, Pertussis, Tetanus Vaccination: Yes Review of Systems - Review of Systems Notes: See history of present illness for pertinent positive review of systems; otherwise all review of systems have been reviewed and are negative Physical Exam - Vital signs Vitals: Temp Pulse Resp BP Pulse Ox 98.7 F 97 17 135/79 H 98 02/26/18 11:47 02/26/18 11:47 02/26/18 11:47 02/26/18 11:47 02/26/18 11:47 - Notes Notes: ` PHYSICAL EXAMINATION: GENERAL: Well-appearing and in no acute distress. HEAD: Atraumatic, normocephalic. EYES: Pupils equal round and reactive to light, extraocular movements intact, sclera anicteric, conjunctiva are normal. ENT: nares patent, oropharynx minimal erythema without tonsillar swelling or exudates. Moist mucous membranes. NECK: Normal range of motion, supple without lymphadenopathy LUNGS: CTAB and equal. No wheezes rales or rhonchi. HEART: Regular rate and rhythm without murmurs ABDOMEN: Soft, no tenderness. No facial grimacing/wincing upon palpation. No guarding, no rebound. EXTREMITIES: Normal range of motion, no pitting edema. No cyanosis. NEUROLOGICAL: Cranial nerves grossly intact. Normal sensory/motor exams. PSYCH: Normal mood, normal affect. SKIN: Warm, Dry, normal turgor, no rashes or lesions noted Course - Re-evaluation Re-evalutation: MEDICAL DECISION MAKING: Concern for upper respiratory/gastrointestinal infection, most likely viral Dose of Zofran here and prescription meloxicam Zofran Instructed patient on fever control with Tylenol and/or (if applicable) Motrin Also discussed keeping hydrated with water or Gatorade/Pedialyte Instructed follow-up PCP next day or few Patient understands and agrees to the plan of care - Vital Signs Vital signs: Temp Pulse Resp BP Pulse Ox 98.7 F 97 17 135/79 H 98 02/26/18 11:47 02/26/18 11:47 02/26/18 11:47 02/26/18 11:47 02/26/18 11:47 Discharge - Discharge Clinical Impression: Viral syndrome Condition: Good Disposition: HOME, SELF-CARE Additional Instructions: You were seen in the emergency department at [facility]. You likely have an upper respiratory and gastrointestinal infection, most likely viral. Use Motrin and/or Tylenol for fever control. You may use saline nasal spray for stuffy nose. Use the prescribed Zofran for vomiting and meloxicam for pain. Stay hydrated. Please followup with your primary physician in the next few days for further management/evaluation. Please return to the emergency department for worsening of symptoms or any symptom that you deem to be concerning or life-threatening. Thank you for allowing us to be part of your care. This is your school/work note for your Emergency Department evaluation today. Prescriptions: Meloxicam 7.5 mg PO DAILYP PRN #7 tablet PRN Reason: Ondansetron [Zofran Odt 4 mg Tablet] 1 tab PO Q4H PRN #15 tab.rapdis PRN Reason: For Nausea/Vomiting
== END 2018-02-26 12:00 | disposition home or self-care (01) ==
LOC: ER 11:43
DX: R11.2 Nausea with vomiting, unspecified (principal); R19.7 Diarrhea, unspecified; B34.9 Viral infection, unspecified; R51 Headache; F17.200 Nicotine dependence, unspecified, uncomplicated; Z88.2 Allergy status to sulfonamides
CPT/HCPCS: 99283; S0119

== ENCOUNTER 2018-05-14 13:07 | Emergency (ER) | payer OTHER ==
--- NOTE | 2018-05-14 13:43 | ER Document Report ---
ED Medical Screen (RME) - General Chief Complaint: Flank Pain Stated Complaint: FLANK PAIN, VOMITING Time Seen by Provider: 05/14/18 13:39 Mode of Arrival: Ambulatory Information source: Patient Notes: This is a 27-year-old male with a history of migraines with a recent hospitalization at an outside hospital for acute renal failure in the setting of weakness, decreased urine output, flank pain. The patient was treated with IV fluids and had serial renal function tests which were reportedly improved and he was discharged. He is presenting today with recurrent symptoms of weakness, decreased urine output and bilateral flank pain. Patient denies fever. He denies blood in the urine. TRAVEL OUTSIDE OF THE [place] IN LAST 30 DAYS: No - Related Data Allergies/Adverse Reactions: methylprednisolone [Methylprednisolone] Allergy (Mild, Verified 05/14/18 13:29) itching Sulfa (Sulfonamide Antibiotics) Allergy (Mild, Verified 05/14/18 13:29) itching Past Medical History - Social History Chew tobacco use (# tins/day): No Frequency of alcohol use: Occasional Drug Abuse: None - Past Medical History Cardiac Medical History: Denies: Hx Coronary Artery Disease, Hx Heart Attack, Hx Hypertension Pulmonary Medical History: Denies: Hx Asthma, Hx Bronchitis, Hx COPD, Hx Pneumonia Neurological Medical History: Reports: Hx Migraine. Denies: Hx Cerebrovascular Accident, Hx Seizures Renal/ Medical History: Denies: Hx Peritoneal Dialysis GI Medical History: Reports: Hx Gastroesophageal Reflux Disease Musculoskeltal Medical History: Denies Hx Arthritis Past Surgical History: Reports: Hx Appendectomy, Hx Cholecystectomy. Denies: Hx Pancreatic Surgery - Immunizations Hx Diphtheria, Pertussis, Tetanus Vaccination: Yes Physical Exam - Vital signs Vitals: Temp Pulse Resp BP Pulse Ox 99.0 F 79 18 128/80 H 97 05/14/18 13:13 05/14/18 13:13 05/14/18 13:13 05/14/18 13:13 05/14/18 13:13 Course - Vital Signs Vital signs: Temp Pulse Resp BP Pulse Ox 99.0 F 79 18 128/80 H 97 05/14/18 13:13 05/14/18 13:13 05/14/18 13:13 05/14/18 13:13 05/14/18 13:13
--- NOTE | 2018-05-14 14:21 | ER Document Report ---
ED General - General Chief Complaint: Flank Pain Stated Complaint: FLANK PAIN, VOMITING Time Seen by Provider: 05/14/18 13:39 Mode of Arrival: Ambulatory Notes: This is a 27-year-old male to the emergency department with chief complaint of weakness and dehydration. Patient states that on of last week he began have some diarrhea and vomiting. 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 Was taken to the local hospital in [place]. Was admitted overnight for acute renal injury, dehydration and rhabdomyolysis. Was subsequently discharged within 24 hours of admission. States that he never has got back to normal. Today began to feel weak. Notices urine looked quite ya colored. Passed out at home again today. Denies any chest pain or shortness of breath. Denies any fever, chills, sweats. Denies any serious headache but has had an on and off headache. Has never had this happen before. Denies any skin lesions. Denies any problems with his eyes ears nose or throat. TRAVEL OUTSIDE OF THE [place] IN LAST 30 DAYS: No - HPI Onset: Just prior to arrival Onset/Duration: Gradual - Related Data Allergies/Adverse Reactions: methylprednisolone [Methylprednisolone] Allergy (Mild, Verified 05/14/18 13:29) itching Sulfa (Sulfonamide Antibiotics) Allergy (Mild, Verified 05/14/18 13:29) itching Past Medical History - General Information source: Patient - Social History Smoking Status: Current Every Day Smoker Cigarette use (# per day): Yes Chew tobacco use (# tins/day): No Frequency of alcohol use: Occasional Drug Abuse: None Lives with: Family Family History: Reviewed & Not Pertinent Patient has suicidal ideation: No Patient has homicidal ideation: No - Past Medical History Cardiac Medical History: Denies: Hx Coronary Artery Disease, Hx Heart Attack, Hx Hypertension Pulmonary Medical History: Denies: Hx Asthma, Hx Bronchitis, Hx COPD, Hx Pneumonia Neurological Medical History: Reports: Hx Migraine. Denies: Hx Cerebrovascular Accident, Hx Seizures Renal/ Medical History: Denies: Hx Peritoneal Dialysis GI Medical History: Reports: Hx Gastroesophageal Reflux Disease Musculoskeletal Medical History: Denies Hx Arthritis Past Surgical History: Reports: Hx Appendectomy, Hx Cholecystectomy. Denies: Hx Pancreatic Surgery - Immunizations Hx Diphtheria, Pertussis, Tetanus Vaccination: Yes Review of Systems - Review of Systems Constitutional: Malaise, Weakness. denies: Fever EENT: denies: Eye discharge, Blurred vision, Throat pain, Difficulty swallowing , Mouth pain Cardiovascular: Syncope. denies: Chest pain, Palpitations, Heart racing Gastrointestinal: Diarrhea, Nausea. denies: Abdominal pain, Vomiting Genitourinary: denies: Burning, Dysuria, Discharge Musculoskeletal: denies: Back pain, Joint pain, Muscle pain Skin: denies: Change in hair/nails, Dryness, Lesions, Lumps, Rash Hematologic/Lymphatic: denies: Blood clots, Easy bleeding, Easy bruising, Swollen glands Neurological/Psychological: Weakness. denies: Confusion, Lost consciousness, Numbness Physical Exam - Vital signs Vitals: Temp Pulse Resp BP Pulse Ox 99.0 F 79 18 128/80 H 97 05/14/18 13:13 05/14/18 13:13 05/14/18 13:13 05/14/18 13:13 05/14/18 13:13 Interpretation: Normal - General General appearance: Appears well, Alert - HEENT Head: Normocephalic, Atraumatic Eyes: Normal Pupils: PERRL - Respiratory Respiratory status: No respiratory distress Chest status: Nontender Breath sounds: Normal Chest palpation: Normal - Cardiovascular Rhythm: Regular Heart sounds: Normal auscultation Murmur: No - Abdominal Inspection: Normal Distension: No distension Bowel sounds: Normal Tenderness: Nontender Organomegaly: No organomegaly - Back Back: Normal, Nontender - Extremities General upper extremity: Normal inspection, Nontender, Normal color, Normal ROM , Normal temperature General lower extremity: Normal inspection, Nontender, Normal color, Normal ROM , Normal temperature, Normal weight bearing. No: Hussein's sign - Neurological Neuro grossly intact: Yes Cognition: Normal Orientation: AAOx4 [place] Coma Scale Eye Opening: Spontaneous [place] Coma Scale Verbal: Oriented [place] Coma Scale Motor: Obeys Commands [place] Coma Scale Total: 15 Speech: Normal Motor strength normal: LUE, RUE, LLE, RLE Sensory: Normal - Psychological Associated symptoms: Normal affect, Normal mood - Skin Skin Temperature: Warm Skin Moisture: Dry Skin Color: Normal Course - Re-evaluation Re-evalutation: 05/14/18 16:33 Labs are all fairly unremarkable with exception of a slightly elevated W BC count. Patient states he has a mild headache but no neck stiffness. Has full range of motion of the neck. Afebrile. Uncertain etiology of why patient has had these symptoms recently. At this time I am going to give him some fluids and Toradol. Given strict instructions with regards to repeat evaluation. Will DC at this time. - Vital Signs Vital signs: Temp Pulse Resp BP Pulse Ox 99.0 F 79 18 128/80 H 97 05/14/18 13:13 05/14/18 13:13 05/14/18 13:13 05/14/18 13:13 05/14/18 13:13 - Laboratory Result Diagrams: 05/14/18 14:05 05/14/18 14:05 Laboratory results interpreted by me: 05/14/18 05/14/18 05/14/18 14:05 14:05 14:05 WBC 12.7 H RBC 6.00 H Absolute Neutrophils 9.0 H Calcium 10.5 H Total Bilirubin 1.9 H Creatine Kinase 43 L Urine Blood SMALL H - EKG Interpretation by Me EKG shows normal: Sinus rhythm, [place], Intervals, QRS Complexes, ST-T Waves Discharge - Discharge Clinical Impression: Mild dehydration Condition: Good Disposition: HOME, SELF-CARE Instructions: Dehydration ([facility]) Additional Instructions: It will be very important that you get plenty of rest. Avoid the heat. Rest for the next few days. Did not over exert yourself. Continue to keep a close eye in her symptoms. If things get worse please return. Forms: Return to Work, Work Clearance, Special Work Note
[2018-05-14 14:27] LABS: ABSOLUTE BASOPHILS # (AUTO) 0.1 10^3/uL (0.0-0.2); ABSOLUTE EOSINOPHILS # (AUTO) 0.2 10^3/uL (0.0-0.6); ABSOLUTE LYMPHOCYTES (AUTO) 2.8 10^3/uL (0.5-4.7); ABSOLUTE MONOCYTES (AUTO) 0.6 10^3/uL (0.1-1.4); BASOPHILS % (AUTO) 0.5 % (0-2); EOSINOPHILS % (AUTO) 1.4 % (0-6); HEMATOCRIT 48.4 % (37.9-51.0); HEMOGLOBIN 16.7 g/dL (13.5-17.0); LYMPHOCYTES % (AUTO) 22.1 % (13-45); MEAN CORPUSCULAR HEMOGLOBIN 27.9 pg (27.0-33.4); MEAN CORPUSCULAR HGB CONC 34.5 g/dL (32.0-36.0); MEAN CORPUSCULAR VOLUME 81 fl (80-97); MONOCYTES % (AUTO) 5.1 % (3-13); PLATELET COUNT 335 10^3/uL (150-450); RED CELL DISTRIBUTION WIDTH 13.9 % (11.5-14.0); SEGMENTED NEUTROPHILS % (AUTO) 70.9 % (42-78); TOTAL CELLS COUNTED % (AUTO) 100 %; WHITE BLOOD COUNT 12.7 10^3/uL (4.0-10.5)
[2018-05-14 14:40] LABS: ALANINE AMINOTRANSFERASE 54 U/L (21-72); ALKALINE PHOSPHATASE 123 U/L (38-126); ANION GAP 16 (5-19); ASPARTATE AMINO TRANSFERASE 24 U/L (17-59); BILIRUBIN,DIRECT 0.2 mg/dL (0.0-0.4); BILIRUBIN,TOTAL 1.9 mg/dL (0.2-1.3); BLOOD UREA NITROGEN 13 mg/dL (7-20); CALCIUM 10.5 mg/dL (8.4-10.2); CARBON DIOXIDE 24 mmol/L (22-30); CHLORIDE 105 mmol/L (98-107); CREATINE KINASE 43 U/L (55-170); GLUCOSE 87 mg/dL (75-110); POTASSIUM 4.4 mmol/L (3.6-5.0); TOTAL PROTEIN 7.9 g/dL (6.3-8.2)
[2018-05-14 14:47] LABS: APPEARANCE,URINE SLIGHTLY-CLOUDY; BILIRUBIN,URINE NEGATIVE (NEGATIVE); COLOR,URINE DARK YELLOW; GLUCOSE, URINE NEGATIVE (NEGATIVE); KETONES,URINE NEGATIVE (NEGATIVE); LEUKOCYTE ESTERASE,URINE NEGATIVE (NEGATIVE); NITRITE,URINE NEGATIVE (NEGATIVE); PROTEIN,URINE NEGATIVE (NEGATIVE); URINE SPECIFIC GRAVITY 1.027; UROBILINOGEN,URINE NEGATIVE mg/dL (<2.0)
[2018-05-14 15:16] LABS: FREE T3 5.05 pg/mL (2.77-5.27); FREE T4 (FREE THYROXINE) 1.46 ng/dL (0.78-2.19)
[2018-05-14 15:30] LABS: THYROID STIMULATING HORMONE 1.23 uIU/mL (0.47-4.68)
--- NOTE | 2018-05-14 15:30 | RADIOLOGY REPORT (SQ) ---
EXAM DESCRIPTION: U/S RETROPERITON (RENAL/AORTA) COMPLETED DATE/TIME: 05/14/2018 3:00 pm REASON FOR STUDY: bilateral flank pain COMPARISON: None. TECHNIQUE: Dynamic and static grayscale images acquired of the kidneys and bladder and recorded on P ACS. Additional selected color Doppler and spectral images recorded. LIMITATIONS: None. FINDINGS: RIGHT KIDNEY: 9.8 cm in length. Normal echogenicity. No solid or suspicious masses. No hydronephrosis. No calcifications. LEFT KIDNEY: 10.6 cm in length. Normal echogenicity. No solid or suspicious masses. No hydrone phrosis. No calcifications. BLADDER: Bladder is not well evaluated due to its non distended state. Patient had voided just prior to the study. OTHER FINDINGS: No other significant finding. IMPRESSION: No significant renal abnormalities were identified. The bladder was not well evaluated due to its non distended state TECHNICAL DOCUMENTATION: JOB ID: [id number] [employer]- All Rights Reserved Reading location - IP/workstation name: [email or web address]
[2018-05-14 15:55] LABS: INTERNATIONAL RATION (INR) 1.01; PROTHROMBIN TIME 13.9 SEC (11.4-15.4)
[2018-05-14 15:56] LABS: PARTIAL THROMBOPLASTIN TIME 29.4 SEC (23.5-35.8)
[2018-05-14] MEDS ORDERED: NORMAL SALINE 1000 ML 1,000 ML IV ONE (16:26)
[2018-05-14] MEDS ORDERED: KETOROLAC TROMETHAMINE INJ/PF 30 MG/1 ML SDV IV ONE (16:29)
[2018-05-14 17:40] VITALS: BP 125/60
--- NOTE | 2018-05-14 22:17 | EKG REPORT ---
SEVERITY:- NORMAL ECG - SINUS RHYTHM : Confirmed by: Kade Nina 14-May-2018 22:16:20
== END 2018-05-14 17:40 | disposition home or self-care (01) ==
LOC: ER 13:07
DX: E86.0 Dehydration (principal); R10.9 Unspecified abdominal pain; R53.1 Weakness; R55 Syncope and collapse; Z88.2 Allergy status to sulfonamides; Z90.49 Acquired absence of other specified parts of digestive tract
CPT/HCPCS: 93005; 99284; 96361; 96374; 36415; 84439; 82550; 83615; 84443; 85025; 85610; 85730; 80053; 81001; 84484; 84481; 76770; 93010; J1885; J7030

== ENCOUNTER 2020-08-09 07:06 | Emergency (ER) | payer SELFPAY ==
[2020-08-09 08:34] VITALS: BP 120/68
--- NOTE | 2020-08-09 08:41 | RADIOLOGY REPORT (SQ) ---
EXAM DESCRIPTION: CHEST 2 VIEWS IMAGES COMPLETED DATE/TIME: 08/09/2020 8:32 am REASON FOR STUDY: CP COMPARISON: None. EXAM PARAMETERS: NUMBER OF VIEWS: two views TECHNIQUE: Digital Frontal and Lateral radiographic views of the chest acquired. RADIATION DOSE: NA LIMITATIONS: none FINDINGS: LUNGS AND PLEURA: Curvilinear opacification in the right upper lobe. Most likely atelecta sis or scar. Lung conte are otherwise clear. No effusions or pneumothorax. MEDIASTINUM AND HILAR STRUCTURES: No masses or contour abnormalities. HEART AND VASCULAR STRUCTURES: Heart normal size. No evidence for failure. BONES: No acute findings. HARDWARE: None in the chest. OTHER: No other significant finding. IMPRESSION: NO ACUTE RADIOGRAPHIC FINDING IN THE CHEST. TECHNICAL DOCUMENTATION: JOB ID: [id number] 2010 [employer]- All Rights Reserved Reading location - IP/workstation name: [email or web address]
[2020-08-09 08:44] LABS: APPEARANCE,URINE CLEAR; BILIRUBIN,URINE NEGATIVE (NEGATIVE); COLOR,URINE YELLOW; GLUCOSE, URINE NEGATIVE (NEGATIVE); KETONES,URINE TRACE mg/dL (NEGATIVE); PROTEIN,URINE NEGATIVE (NEGATIVE); URINE SPECIFIC GRAVITY 1.025; UROBILINOGEN,URINE NEGATIVE mg/dL (<2.0)
[2020-08-09 08:48] LABS: ABSOLUTE BASOPHILS # (AUTO) 0.1 10^3/uL (0.0-0.2); ABSOLUTE EOSINOPHILS # (AUTO) 0.4 10^3/uL (0.0-0.6); ABSOLUTE LYMPHOCYTES (AUTO) 3.5 10^3/uL (0.5-4.7); ABSOLUTE MONOCYTES (AUTO) 1.1 10^3/uL (0.1-1.4); ABSOLUTE NEUT (AUTO) 11.7 10^3/uL (1.7-8.2); BASOPHILS % (AUTO) 0.8 % (0-2); EOSINOPHILS % (AUTO) 2.1 % (0-6); HEMATOCRIT 45.6 % (37.9-51.0); HEMOGLOBIN 15.9 g/dL (13.5-17.0); LYMPHOCYTES % (AUTO) 21.2 % (13-45); MEAN CORPUSCULAR HEMOGLOBIN 28.4 pg (27.0-33.4); MEAN CORPUSCULAR HGB CONC 34.9 g/dL (32.0-36.0); MEAN CORPUSCULAR VOLUME 81 fl (80-97); MONOCYTES % (AUTO) 6.4 % (3-13); PLATELET COUNT 273 10^3/uL (150-450); RED CELL DISTRIBUTION WIDTH 13.7 % (11.5-14.0); SEGMENTED NEUTROPHILS % (AUTO) 69.5 % (42-78); TOTAL CELLS COUNTED % (AUTO) 100 %; WHITE BLOOD COUNT 16.8 10^3/uL (4.0-10.5)
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
[2020-08-09 08:59] LABS: URINE AMPHETAMINES SCREEN NEGATIVE; URINE BARBITURATES SCREEN NEGATIVE; URINE BENZODIAZEPINES SCREEN NEGATIVE; URINE COCAINE SCREEN NEGATIVE; URINE METHADONE SCREEN NEGATIVE; URINE PHENCYCLIDINE SCREEN NEGATIVE
[2020-08-09 09:01] LABS: URINE MARIJUANA (THC) SCREEN UNCONFIRMED POSITIVE
[2020-08-09 09:02] LABS: ALBUMIN 4.5 g/dL (3.5-5.0); ALKALINE PHOSPHATASE 124 U/L (38-126); ANION GAP 12 (5-19); ASPARTATE AMINO TRANSFERASE 25 U/L (17-59); BILIRUBIN,DIRECT 0.2 mg/dL (0.0-0.4); BILIRUBIN,TOTAL 1.8 mg/dL (0.2-1.3); BLOOD UREA NITROGEN 11 mg/dL (7-20); CALCIUM 9.9 mg/dL (8.4-10.2); CARBON DIOXIDE 22 mmol/L (22-30); CHLORIDE 107 mmol/L (98-107); GLUCOSE 98 mg/dL (75-110); POTASSIUM 3.7 mmol/L (3.6-5.0); TOTAL PROTEIN 6.7 g/dL (6.3-8.2)
[2020-08-09 09:05] LABS: ACETAMINOPHEN < 10 ug/mL (10-30); ALCOHOL < 10 mg/dL (NONE DETECTED); SALICYLATE < 1.0 mg/dL (2.0-20.0)
[2020-08-09] MEDS: NORMAL SALINE 1000 ML 1,000 ML IV PRN ×2 (10:26→11:00)
[2020-08-09] MEDS ORDERED: CEFTRIAXONE INJ 1000 MG VIAL IV ONE (10:26)
[2020-08-09] MEDS ORDERED: ONDANSETRON HCL INJ/PF 4 MG/2 ML SDV IV ONE (11:17)
--- NOTE | 2020-08-09 13:02 | EKG REPORT ---
SEVERITY:- NORMAL ECG - SINUS RHYTHM : Confirmed by: Seun Boston MD 09-Aug-2020 13:01:37
== END 2020-08-09 13:16 | disposition home or self-care (01) ==
LOC: ER 07:06
DX: R55 Syncope and collapse (principal); R07.9 Chest pain, unspecified; F41.9 Anxiety disorder, unspecified; F17.210 Nicotine dependence, cigarettes, uncomplicated; Z88.2 Allergy status to sulfonamides; Z88.8 Allergy status to other drugs, medicaments and biological substances; F12.10 Cannabis abuse, uncomplicated
CPT/HCPCS: 93005; 99285; 96361; 96374; 96375; 36415; 82962; 80307 ×4; 83605; 83735; 85025; 80053; 81001; 84484; 71046; 93010; J0696; J2405; J7030